=== PATIENT | female | born 1990 | race Caucasian/White ===

== ENCOUNTER 2018-07-08 22:56 | Emergency (ER) | payer MEDICAID ==
[~2018-07-08] VITALS: Ht 160 cm; Wt 96.6 kg
[2018-07-08 23:11] VITALS: Ht 160 cm; Wt 96.6 kg
[2018-07-09 00:46] VITALS: BP 133/67
== END 2018-07-09 00:46 | disposition home or self-care (01) ==
LOC: ED 22:56
DX: S16.1XXA Strain of muscle, fascia and tendon at neck level, initial encounter (principal); M25.511 Pain in right shoulder; V43.52XA Car driver injured in collision with other type car in traffic accident, initial encounter; Y93.I9 Activity, other involving external motion; Y92.488 Other paved roadways as the place of occurrence of the external cause; Y99.8 Other external cause status
CPT/HCPCS: J1885

== ENCOUNTER 2018-12-12 21:40 | Emergency (ER) | payer MEDICAID ==
[~2018-12-12] VITALS: Ht 165.1 cm; Wt 101.2 kg
[2018-12-12 22:10] VITALS: Ht 165.1 cm; Wt 101.2 kg
[2018-12-13 00:26] VITALS: BP 109/60
== END 2018-12-13 00:19 | disposition home or self-care (01) ==
LOC: ED 21:40
DX: N76.0 Acute vaginitis (principal); K59.00 Constipation, unspecified; R10.30 Lower abdominal pain, unspecified; J45.909 Unspecified asthma, uncomplicated
CPT/HCPCS: 87491; 87591; J1885

== ENCOUNTER 2019-06-29 23:58 | Emergency (ER) | payer MEDICAID ==
[~2019-06-29] VITALS: Ht 162.6 cm; Wt 103.0 kg
[2019-06-30 00:16] VITALS: Ht 162.6 cm; Wt 103.0 kg
[2019-06-30 01:50] VITALS: BP 132/57
== END 2019-06-30 01:50 | disposition home or self-care (01) ==
LOC: ED 23:58
DX: H66.92 Otitis media, unspecified, left ear (principal); R21 Rash and other nonspecific skin eruption